=== PATIENT | male | born 1970 | race Caucasian/White ===

== ENCOUNTER → 2018-03-20 | Day surgery (SDC) | payer OTHER, MEDICARE ==
[~2018-03-20] VITALS: Ht 157.5 cm; Wt 80.0 kg
[~2018-03-20] MED LIST: ACET-2744 PO; ALEN70TA48 PO; BENZ2TAB10 PO; CARB200T6 PO; CHOL200059 PO; CLINDAMYCIN PHOS 150 MG/ML 4 ML VIAL ONE; CYAN250014 PO; FURO20 PO; FentaNYL CITRATE-PF 100 MCG/2 ML VIAL IVP ONE; LEVO25TA9 PO; LIDOCAINE/PF 2% 5 ML VIAL IM ONE; METO25 PO; MIDAZOLAM HCL 2 MG/2 ML VIAL IVP ONE; MULT-248 PO; ONDANSETRON HCL 4 MG/2 ML VIAL IVP ONE; OS500 PO; PANT20TA12 PO; PROPOFOL 1% 20 ML VIAL IVP ONE; QUET100T PO; RINGERS SOLUTION,LACTATED 1,000 ML IV ONE; RISP4 PO; ROCURONIUM BROMIDE 10 MG/ML 5 ML VIAL IVP ONE; SODIUM CHLORIDE 0.9% 100 ML ONE; VALA500T38 PO
== END | disposition home or self-care (01) ==
LOC: SURGERY 06:46
PROVIDERS: ATTEND Dentist General Practice
DX: K05.30 Chronic periodontitis, unspecified (principal); K03.6 Deposits [accretions] on teeth; G47.33 Obstructive sleep apnea (adult) (pediatric); Q90.9 Down syndrome, unspecified; I11.0 Hypertensive heart disease with heart failure; I50.9 Heart failure, unspecified; E78.5 Hyperlipidemia, unspecified; I38 Endocarditis, valve unspecified; E66.9 Obesity, unspecified; M81.0 Age-related osteoporosis without current pathological fracture; I42.8 Other cardiomyopathies; F32.9 Major depressive disorder, single episode, unspecified; Z93.0 Tracheostomy status; Z79.891 Long term (current) use of opiate analgesic; Z68.32 Body mass index [BMI] 32.0-32.9, adult; Z93.1 Gastrostomy status; Z87.01 Personal history of pneumonia (recurrent); Z95.2 Presence of prosthetic heart valve; Z98.890 Other specified postprocedural states; Z79.899 Other long term (current) drug therapy
CPT/HCPCS: 41899; J2250; J2405; J2704; J3010; J3490 ×3; J7050; J7120

== ENCOUNTER 2019-07-30 06:48 | Day surgery (SDC) | payer OTHER, MEDICARE ==
[~2019-07-30] VITALS: Ht 152.4 cm; Wt 81.8 kg
[~2019-07-30 06:48] MED LIST changes: +ALEN70TA10 PO; -ALEN70TA48 PO; +CHOL200016 PO; -CHOL200059 PO; -CLINDAMYCIN PHOS 150 MG/ML 4 ML VIAL ONE; +DOCU250C90 PO; -FURO20 PO; -FentaNYL CITRATE-PF 100 MCG/2 ML VIAL IVP ONE; -LIDOCAINE/PF 2% 5 ML VIAL IM ONE; -METO25 PO; -MIDAZOLAM HCL 2 MG/2 ML VIAL IVP ONE; -ONDANSETRON HCL 4 MG/2 ML VIAL IVP ONE; -PANT20TA12 PO; -PROPOFOL 1% 20 ML VIAL IVP ONE; -ROCURONIUM BROMIDE 10 MG/ML 5 ML VIAL IVP ONE; +SIME80TA11 PO; -SODIUM CHLORIDE 0.9% 100 ML ONE; -VALA500T38 PO; +VALA500T42 PO
[2019-07-30] MEDS ORDERED: RINGERS SOLUTION,LACTATED 1,000 ML IV ONE (07:00)
[2019-07-30] MEDS ORDERED: SODIUM CHLORIDE 0.9% 100 ML ONE (07:09)
[2019-07-30 07:40] LABS: BASOPHILS % (AUTO) 0.3 % (0.0-2.0); EOSINOPHILS % (AUTO) 1.9 % (1.0-6.0); HEMATOCRIT 41.1 % (41-53); HEMOGLOBIN 14.6 g/dL (13.5-17.5); LYMPHOCYTES # (AUTO) 0.9 K/uL (1.0-4.8); LYMPHOCYTES % (AUTO) 21.2 % (22.0-44.0); MEAN CORPUSCULAR HEMOGLOBIN 37.4 pg (26.0-34.0); MEAN CORPUSCULAR HGB CONC 35.4 G/dL (31.0-37.0); MEAN CORPUSCULAR VOLUME 106 fL (80-100); MONOCYTES # (AUTO) 0.4 K/uL (0.1-1.0); MONOCYTES % (AUTO) 9.6 % (2.0-9.0); NEUTROPHILS # (AUTO) 2.7 K/uL (1.8-7.7); PLATELET COUNT (AUTO) 338 K/uL (150-450); RED BLOOD CELL COUNT(AUTO) 3.89 MIL/uL (4.50-5.90); RED CELL DISTRIBUTION WIDTH 13.2 % (11.5-14.5)
[2019-07-30 07:53] LABS: PROTHROMBIN TIME 10.6 SEC (9.4-11.6)
[2019-07-30 07:54] LABS: ANION GAP 7 mmol/L (8-16); CARBON DIOXIDE 28 mmol/L (22-29); CHLORIDE 102 mmol/L (98-107); CREATININE 0.71 mg/dL (0.60-1.30); GLOMERULAR FILTR. RATE CALC > 60 mL/min (>60); GLUCOSE,RANDOM 93 mg/dL (70-110); SODIUM SERUM 137 mmol/L (136-145); UREA NITROGEN, BLOOD 7 mg/dL (7-18)
[2019-07-30 07:59] LABS: ALANINE AMINOTRANSFERASE 38 U/L (12-78); ALBUMIN 3.3 g/dL (3.4-5.0); ALKALINE PHOSPHATASE 106 U/L (46-116); ASPARTATE AMINOTRANSFERASE 20 U/L (15-37); BILIRUBIN,TOTAL 0.2 mg/dL (0.1-1.0); TOTAL PROTEIN, SERUM 6.9 g/dL (6.4-8.2)
[2019-07-30] MEDS ORDERED: 0.9% SODIUM CHLORIDE 10 ML VIAL IVP ONE (12:00)
[2019-07-30] MEDS ORDERED: PROPOFOL 1% 20 ML VIAL IVP ONE (12:00)
[2019-07-30] MEDS ORDERED: DEXAMETHASONE SOD PHOS 4 MG/ML VIAL IVP ONE (12:00)
[2019-07-30] MEDS ORDERED: LIDOCAINE/PF 2% 5 ML VIAL INJ ONE (12:00)
[2019-07-30] MEDS ORDERED: EPHEDrine SULFATE 50 MG/ML VIAL IM ONE (12:00)
[2019-07-30] MEDS ORDERED: SUCCINYLCHOLINE CHLORIDE 20 MG/ML 10 ML VIAL IVP ONE (12:00)
[2019-07-30] MEDS ORDERED: FentaNYL CITRATE-PF 100 MCG/2 ML VIAL IVP ONE (12:00)
[2019-07-30] MEDS ORDERED: ONDANSETRON HCL 4 MG/2 ML VIAL IVP ONE (12:00)
== END 2019-07-30 13:20 | disposition home or self-care (01) ==
LOC: SURGERY 06:48
PROVIDERS: ATTEND Dentist General Practice
DX: K02.9 Dental caries, unspecified (principal); K05.30 Chronic periodontitis, unspecified; K03.6 Deposits [accretions] on teeth; M81.0 Age-related osteoporosis without current pathological fracture; I50.9 Heart failure, unspecified; G40.909 Epilepsy, unspecified, not intractable, without status epilepticus; Z79.899 Other long term (current) drug therapy
CPT/HCPCS: 36415; 41899; 71045; 80053; 85025; 85610; 85730; 93005; J0330; J1100; J2405; J2704; J3010; J3490 ×2; J7050; J7120